=== PATIENT | male | born 1965 | race Caucasian/White ===

== ENCOUNTER 2024-01-28 09:39 | Emergency (ER) | payer SELFPAY ==
[2024-01-28 10:00] VITALS: BP 156/92; PULSE 46; RESP 22; TEMP 37.7; O2SAT 96; BMI 32.2
--- NOTE | 2024-01-28 10:11 | ED_ITS ---
Discharge Plan Disposition Patient Disposition: Home, Self-Care Condition: Good Prescriptions Prescriptions: New azithromycin [Zithromax Z-Dusty] 250 mg tablet See Rx Instructions .ROUTE .COMPLEX 5 Days Qty: 6 0RF Rx Instructions: For 250 mg dose pack: take 500 mg today (day 1), then 250 mg for 4 days (days 2-5) guaifenesin [Mucinex] 600 mg tablet extended release 12hr 1,200 mg PO BID PRN (Reason: cough) Qty: 20 0RF dextromethorphan polistirex [Delsym 12 hour] 30 mg/5 mL suspension,extended rel 12 hr 10 ml PO Q12H PRN (Reason: cough) Qty: 89 0RF Referrals Follow up/Referrals: Provider,Referral, MD [Primary Care Provider] - See instructions Activity Restrictions/Add. Instructions Additional Instructions/Restrictions: * Start antibiotic today. Be sure to complete entire prescription even if feeling better * Monitor temp. Tylenol every 4 hours as needed and / or ibuprofen every 6 hours as needed ( As long as your primary care physician has told you that it ok to take both. For fever/aches/pains ER if no less than 101 despite Tylenol or Motrin * Humidifier/vaporizer or hot steamy shower * Inhaler every 4-6 hours as needed like we discussed. If unsure how to use it, ask pharmacist to demonstrate how. Should help open airways and improve cough, wheezing, and shortness of breath * Mucinex during the day for your cough and cough suppressant only at night. Be sure to drink lots of water. Delsym at night to help with cough Follow up IMMEDIATELY for new or worsening of symptoms OR no noticeable improvement over the next 48-72 hours. 911 immediately for any life threatening symptoms such as chest pain or difficulty breathing Clinical Impressions Clinical Impression: Bronchitis Stand Alone Forms Stand Alone Forms: Work/School Release Instructions Patient Instructions: Acute Bronchitis, Guaifenesin, Azithromycin Print Language Print Language: Thai Discharge ED Provider: Becky Xie [facility] HPI General Stated complaint: chest congestion cough fever Mode of Arrival: Ambulatory Source of Information: Patient Limitations: No Limitations Time Seen by Provider: 01/28/24 10:13 Description of Symptoms (Recalled from Triage Doc. by RN): PATIENT C/O CHEST CONGESTION SINCE SUNDAY EVENING HEENT Symptoms (Recalled from RN notes): No Resp Symptoms (Recalled from RN notes): Yes Skin Symptoms (Recalled from RN notes): No MS Symptoms (Recalled from RN notes): No Functional Status (Recalled from RN notes): WNL History of Present Illness Provider Complaint: Patient states that he has been having chest congestion and cough since Wed States that he has been having sinus congestion, drainage in the back of his throat, and at times coughing up thick mucous feels like he may have bronchitis States today he wasnt feeling any better so he came in to get checked Related Data Previous Rx's ?Medication ?Instructions ?Recorded azithromycin 250 mg tablet See Rx Instructions PO .COMPLEX 5 01/28/24 (Zithromax Z-Dusty) days #6 tabs dextromethorphan polistirex 30 10 ml PO Q12H PRN cough #89 mL 01/28/24 mg/5 mL oral susp ext.release 12hr (Delsym 12 hour) guaifenesin 600 mg tablet, 1,200 mg (2 x 600 mg) PO BID PRN 01/28/24 extended release 12 hr (Mucinex) cough #20 tabs Allergies Allergy/AdvReac Type Severity Reaction Status Date / Time lisinopril Allergy Cough Verified 01/28/24 10:09 Penicillins Allergy Verified 01/28/24 10:09 Worker's Comp Is this a Worker's Comp case?: No [facility] Disclaimer: The information contained in this section may have been updated after the patient was seen, as this information can be updated by other users. Medical History (Updated 01/28/24 @ 10:31 by Becky Xie APRN) Diabetes mellitus, type 2 History of heart attack Hypertension Surgical History (Updated 01/28/24 @ 10:10 by Silvana Stone RN) History of tonsillectomy History of open heart surgery Social History Smoking Status: Unknown if ever smoked alcohol intake: never current occupational status: employed Travel in the last 8 weeks: None ROS Obtained: Yes All systems reviewed & no additional complaints except as documented and Yes Systems reviewed as appropriate & no additional complaints except as documented Constitutional Constitutional: Reports system reviewed and no additional complaints, except as documented, Reports as per HPI and Reports headache(s) ENT Ears, Nose, Mouth, and Throat: Reports system reviewed and no additional complaints, except as documented, Reports as per HPI, Reports headache(s), Reports sinus pain, Reports sinus pressure and Reports sore throat (scratchy throat) Cardiovascular Cardiovascular: Reports system reviewed and no additional complaints, except as documented and Reports as per HPI Respiratory Respiratory: Reports system reviewed and no additional complaints, except as documented, Reports as per HPI, Denies shortness of breath, Reports chest congestion, Reports cough and Reports wheezing (on and off at times) Gastrointestinal Gastrointestingal: Reports system reviewed and no additional complaints, except as documented and as per HPI Neurologic Neurologic: Reports headache(s) Allergic/Immunologic Allergic/Immunologic: Reports wheezing (on and off at times) Physical Exam General General appearance: alert and in no apparent distress ENT ENT exam: Present mucous membranes moist Expanded ENT Exam Nose exam: Present sinus tenderness Throat exam: Present other (PND noted) Respiratory Respiratory exam: Present normal lung sounds bilaterally; Absent respiratory distress or wheezes Cardiovascular Cardiovascular exam: Present regular rate, normal rhythm and normal heart sounds Neurological Exam Neurological exam: Present alert, oriented X3 and normal gait Medical Decision Making Sandeep Inquiry Pt receiving controlled substance: No Sandeep was queried for this patient: No Vital Signs: 01/28/24 10:00 Temperature 99.8 F H Temperature Source Oral Pulse Rate [Left Brachial] 46 L Respiratory Rate 22 Blood Pressure [Left Arm] 156/92 H Blood Pressure Mean [Left Arm] 113 Blood Pressure Source [Left Arm] Automatic Cuff Blood Pressure Position [Left Arm] Sitting 02 Sat by Pulse Oximetry 96 Oxygen Delivery Method Room Air Medical Decision Narrative: Patient states that he is suppose to be on several medications but recently lost his insurance but states he is suppose to be on Metformin and blood pressure medication but he has some left over Metformin he has been taking until his insurance gets straightened out Discussed checking FSBS, CXR and patient declined at this time Discussed transfer to the ED for more extensive work up due to hx and patient declined
[2024-01-28 10:35] VITALS: BP 156/92; PULSE 46; RESP 22; TEMP 37.7; O2SAT 96
[2024-01-28] MEDS: ALBUTEROL-HFA 90MCG/PUFF INHALER 8GM 2 PUFF IH (10:36)
== END 2024-01-28 10:42 | disposition home or self-care (01) ==
PROVIDERS: Emergency Provider Nurse Practitioner
DX: J20.9 Acute bronchitis, unspecified (principal); R09.82 Postnasal drip; R09.81 Nasal congestion; R05.9 Cough, unspecified; E11.9 Type 2 diabetes mellitus without complications; I10 Essential (primary) hypertension; Z79.84 Long term (current) use of oral hypoglycemic drugs; Z59.7 Insufficient social insurance and welfare support
CPT/HCPCS: 99204; 99212; G0463